=== PATIENT | female | born 1945 | race Caucasian/White ===

== ENCOUNTER → 2018-01-03 12:37 | Outpatient (CLI) | payer MEDICARE, OTHER, SELFPAY ==
--- NOTE | 2018-01-03 12:42 | CA_ITS ---
PROCEDURE: 2-D M-mode and color Doppler study INDICATIONS FOR THE TEST: Chest pain COPD Heart Murmur Tobacco Smoking Palpitations Fatigue+ Syncope Edema+ Hypertension+Diabetes Mellitus Rheumatic Fever SOB CHEN Obesity Hyperlipidemia+ Family History HD Additional History CAD PATIENT INFORMATION HEIGHT: 63 WEIGHT:168 GENDER: Female B/P:143/72 2-D/M-MODE INTERPRETATION: 2-D MEASUREMENTS OBSERVED VALUES IN CMS Right Ventricular Dimension (RVDd) 2.2 Interventricular Septum (Thickness)(IVsd) 1.2 Left Ventricular Internal Dimensions(LVIDd) 3.7 Left Ventricular Posterior Wall (Thickness)(LVPWd) 1.5 Aortic Root 3.2 Aortic Cusp Separation 2.1 Left Atrial Dimensions (LAD) 3.8 2D 1. Left atrium is mildly enlarged, left ventricle is normal size, mild concentric left ventricular hypertrophy, visually estimated ejection fraction 55% with no obvious regional wall motion abnormality. 2. The right atrium and right ventricle are normal size and contractility. 3. The aortic valve is minimally thickened and fibrosed. 4. Mitral valve has mitral annular calcification. 5. The tricuspid valve is grossly normal. 6. No significant pericardial effusion noted 7. Pulmonic valve is poorly visualized. DOPPLER INTERROGATION: Doppler interrogation of the aortic, mitral and tricuspid valvular presence of mild mitral and tricuspid regurgitation, calculated right ventricular systolic pressure is 40 mmHg consistent with mild primary hypertension, grade 2 diastolic dysfunction seen with tissue Doppler evidence of raised left atrial pressure. CONCLUSION: 1. Mildly enlarged left atrium, normal left ventricular size, mild concentric left ventricular hypertrophy, visually estimated ejection fraction 55% with no obvious regional wall motion abnormality, grade 2 diastolic dysfunction seen with tissue Doppler evidence of raised left atrial pressure. 2. Mild mitral and tricuspid regurgitation. Calculated right ventricular systolic pressure is 40 mmHg. 3. No significant pericardial effusion noted.
== END ==
PROVIDERS: Family Provider Internal Medicine; PCP Internal Medicine; Visit Provider Internal Medicine
DX: I25.10 Atherosclerotic heart disease of native coronary artery without angina pectoris (principal); I10 Essential (primary) hypertension
CPT/HCPCS: 93306

== ENCOUNTER → 2019-05-03 08:41 | Outpatient (CLI) | payer MEDICARE, BC, SELFPAY ==
--- NOTE | 2019-05-03 08:42 | CA_ITS ---
APPROVED REPORT EXAM: Comprehensive 2D, Doppler, and color-flow Echocardiogram Carpet Layer: Mary Zafar CRT Ht: 5 ft 4 in Wt: 169lbs BSA: 1.82 BP: 137/46 mmHg Indications: SOB, VERTIGO, HTN, SOB 2D Dimensions LVOT 1.68 cm (M/F) 1.5-2.5 M-Mode Dimensions RVDd 2.01 cm (0.9-2.6) LVDd 4.68 cm (3.5-5.7) LVDs 2.91 cm (3.5-5.7) IVSd 1.31 cm (0.6-1.1) PWd 0.70 cm (0.6-1.1) EF (Teich) 67.90% FS 37.80% EDV (Teich) 101.30 mL ESV (Teich) 32.50 mL LV Diastology E/A Ratio 0.96 Mitral Valve MV A Velocity 103.00 (40-130 cm/s) Left Ventricle Left atrium is moderately enlarged, left ventricle is normal size, mild concentric left ventricular hypertrophy, visually estimated ejection fraction 55% with no regional wall motion abnormality, grade 1 diastolic dysfunction seen with tissue Doppler evidence of raise left atrial pressure. Right Ventricle Right atrium and right ventricle are normal size and contractility. Aortic Valve Aortic valve is thickened and calcified leaflet continue to display good mobility, there is no aortic stenosis or aortic insufficiency. Mitral Valve Mitral valve has mitral calcification, leaflets are minimally thickened, there is no mitral stenosis, there is mild mitral regurgitation. Tricuspid Valve Tricuspid valve is grossly normal, there is mild tricuspid regurgitation, calculated right ventricular systolic pressure is 33 mmHg. Inferior vena cava is not well-visualized. Pulmonic Valve Pulmonic valve is poorly visualized. Great Vessels Aortic root is normal size. Pericardium No significant pericardial effusion noted. Conclusion 1. Moderately enlarged left atrium, normal left ventricular size, mild concentric left ventricular hypertrophy, visually estimated ejection fraction 55% with no regional wall motion abnormality, grade 1 diastolic dysfunction seen with tissue Doppler evidence of raise left atrial pressure. 2. Mild mitral and tricuspid regurgitation, calculated right ventricular systolic pressure is 33 mmHg, inferior vena cava is not well-visualized. 3. No significant pericardial effusion noted. Electronically signed by : Nelson Rojas, 05/03/2019 15:30:37
--- NOTE | 2019-05-03 08:42 | CA_ITS ---
APPROVED REPORT Mobility Engineer: Tonia Mendez RVT Laterality: Bilateral Study Quality: Excellent Indications: dizziness Risk Factors Hypertension: Smoking Doppler Spectral Velocity Analysis ECA (R) 92.10/10.30 cm/s ECA (L) 69.70/5.60 cm/s dICA (R) 87.80/21.80 cm/s dICA (L) 66.40/17.40 cm/s Virgen (R) 83.00/21.80 cm/s Virgen (L) 55.50/11.30 cm/s pICA (R) 81.80/21.20 cm/s pICA (L) 50.80/11.80 cm/s dCCA (R) 50.10/10.90 cm/s dCCA (L) 73.20/12.50 cm/s pCCA (R) 71.10/12.00 cm/s pCCA (L) 91.50/20.50 cm/s Vert (R) 43.70/8.30 cm/s Vert (L) 57.90/9.40 cm/s ICA/CCA 1.75 ICA/CCA 0.91 Conclusion Study suggests normal right internal cartoid artery. Study suggests normal left internal cartoid artery. Antegrade flow seen bilateral vertebral arteries. Electronically signed by : Alireza Alberto MD 05/03/2019 17:19:50
== END ==
PROVIDERS: PCP Physician Assistant; Visit Provider Urology
DX: R42 Dizziness and giddiness (principal); I27.20 Pulmonary hypertension, unspecified
CPT/HCPCS: 93306; 93880

== ENCOUNTER → 2019-05-17 10:26 | Outpatient (CLI) | payer MEDICARE, BC, SELFPAY ==
[2019-05-17 12:18] LABS: Anion Gap 12.8 mEq/L (5-15); Blood Urea Nitrogen 17 mg/dL (7-18); Calcium 8.8 mg/dL (8.5-10.1); Carbon Dioxide 28 mmol/L (21.0-32.0); Chloride 105 mmol/L (98-107); Creatinine,Serum 0.71 mg/dL (0.55-1.02); Estimated Glomerular Filt Rate 80 ml/min (>60); GFR (African American) 97 ML/MIN (>60); Glucose 89 mg/dL (74-106); Potassium 4.8 mmoL/L (3.5-5.1); Sodium 141 mmol/L (136-145)
== END ==
PROVIDERS: Visit Provider Urology
DX: I11.9 Hypertensive heart disease without heart failure (principal); R60.9 Edema, unspecified
CPT/HCPCS: 36415; 80048